=== PATIENT | male | born 1985 | race African-American/Black ===

== ENCOUNTER 2020-01-01 06:33 | Emergency (ER) | payer MEDICAID ==
[~2020-01-01] VITALS: Ht 182.9 cm; Wt 88.0 kg
[2020-01-01] MEDS ORDERED: DIPHENHYDRAMINE 25MG CAPSULE PO ONE (08:30)
[2020-01-01 10:42] VITALS: BP 157/82
== END 2020-01-01 10:41 | disposition home or self-care (01) ==
LOC: ER 06:33
DX: L25.9 Unspecified contact dermatitis, unspecified cause (principal); F12.10 Cannabis abuse, uncomplicated
CPT/HCPCS: 29105; 99283; Q0163